=== PATIENT | male | born 1965 | race Caucasian/White ===

== ENCOUNTER 2017-10-11 14:46 | Inpatient (IN) | payer OTHER ==
--- NOTE | 2017-10-11 15:09 | PDOC ---
Rapid Medical Evaluation Time Seen by Provider: 10/11/17 15:07 Medical Evaluation: 10/11/17 15:07 I have performed a brief in-person evaluation of this patient. The patient presents with a chief complaint of: dizziness w/ n/v, also reports L arm pain. Denies any pmhx Pertinent physical exam findings:Tachycardic and hypertensive at triage w/ clear chest/lungs and no focal neuro deficits I have ordered the following:ekg/cxr/labs The patient will proceed to the ED for further evaluation. 0
[2017-10-11 15:59] LABS: BASO % 0.4 % (0-2.0); EOS % 0.2 % (0-4.5); HEMATOCRIT 46.5 % (35.4-49); HEMOGLOBIN 15.2 GM/dL (11.7-16.9); LYMPH % 9.2 % (8-40); MCH 27.7 pg (25.7-33.7); MCHC 32.6 g/dl (32.0-35.9); MEAN PLT VOLUME 8.4 fl (7.5-11.1); MONO % 6.6 % (3.8-10.2); NEUT % 83.6 % (42.8-82.8); PLATELET COUNT 359 K/MM3 (134-434); RBC 5.47 M/mm3 (4.00-5.60); RDW 13.8 % (11.9-15.9); WHITE BLOOD COUNT 10.3 K/mm3 (4.0-10.0)
[2017-10-11 16:04] LABS: URINE APPEARANCE CLEAR; URINE BILIRUBIN NEGATIVE (NEGATIVE); URINE BLOOD NEGATIVE (NEGATIVE); URINE COLOR STRAW; URINE GLUCOSE (UA) NEGATIVE (NEGATIVE); URINE KETONE NEGATIVE (NEGATIVE); URINE LEUK ESTERASE NEGATIVE (NEGATIVE); URINE NITRITE NEGATIVE (NEGATIVE); URINE PROTEIN NEGATIVE (NEGATIVE); URINE UROBILINOGEN NEGATIVE mg/dL (0.2-1.0)
[2017-10-11 16:22] LABS: ANION GAP 9 (8-16); BILIRUBIN,TOTAL 0.3 mg/dL (0.2-1.0); BLOOD UREA NITROGEN 17 mg/dL (7-18); CHLORIDE 106 mmol/L (98-107); CO2 26 mmol/L (21-32); CREATININE 1.3 mg/dL (0.7-1.3); GLUCOSE,RANDOM 107 mg/dL (74-106); POTASSIUM 4.1 mmol/L (3.5-5.1); SGOT/AST 52 U/L (15-37); SGPT/ALT 64 U/L (12-78); SODIUM 141 mmol/L (136-145); TOT PROT 7.8 g/dl (6.4-8.2)
[2017-10-11 16:36] LABS: ALK PHOS 107 U/L (45-117)
[2017-10-11] MEDS ORDERED: ASPIRIN COATED 81 MG TABLET.EC PO ONE (17:08)
[2017-10-11] MEDS ORDERED: ASPIRIN 325 MG TABLET ONE (17:45)
--- NOTE | 2017-10-11 18:03 | PDOC ---
Attending Attestation - Resident Resident Name: Garrett Clay - ED Attending Attestation I have performed the following: I have examined & evaluated the patient, The case was reviewed & discussed with the resident, I agree w/resident's findings & plan, Exceptions are as noted - HPI HPI: 10/11/17 20:44 The patient is a 52 year old male, with no significant past medical history who presents to the emergency department with lightheadedness, SOB, chest pain radiating to LUE since around 11:00 am today. The patient reports while at work having a sudden onset of SOB, chest pain, and numbness in his left arm. He reports going home, where he reports vomiting once. He notes after about an 1-2 hours his symptoms mostly resolved and upon ED arrival patients symptoms appear to have subsided. He denies any recent fevers, chills, headache or dizziness. He denies any recent nausea, vomit, diarrhea or constipation. He denies any recent chest pain or shortness of breath. He denies any recent dysuria, frequency, urgency or hematuria. No hx similar sxs, no recent travel. Allergies: NKA Past surgical history: None reported. - Physicial Exam PE: 10/11/17 20:45 GENERAL: Awake, alert, and fully oriented, in no acute distress HEAD: No signs of trauma EYES: PERRLA, EOMI, sclera anicteric, conjunctiva clear ENT: Auricles normal inspection, hearing grossly normal, nares patent, oropharynx clear without exudates. Moist mucosa NECK: Normal ROM, supple, no lymphadenopathy, JVD, or masses LUNGS: Breath sounds equal, clear to auscultation bilaterally. No wheezes, and no crackles HEART: tachycardic to 115 but regular, normal S1 and S2, no murmurs, rubs or gallops ABDOMEN: Soft, nontender, normoactive bowel sounds. No guarding, no rebound. No masses EXTREMITIES: Normal range of motion, no edema. No clubbing or cyanosis. No cords , erythema, or tenderness BACK: No midline spinal tenderness in cervical/thoracic/lumbar region NEUROLOGICAL: Normal speech, cranial nerves intact, negative pronator drift, 5/ 5 strength in all 4 extremities, normal sensation to light touch in all 4 extremities, normal cerebellar exam, normal gait, normal reflexes and tone SKIN: Warm, Dry, normal turgor, no rashes or lesions noted.
[2017-10-11 19:07] LABS: INR 1.1 (0.82-1.09); PROTHROMBIN TIME (PATIENT) 12.4 SEC (9.98-11.88)
--- NOTE | 2017-10-11 19:12 | PDOC ---
History of Present Illness - General Chief Complaint: Lightheaded Stated Complaint: Nausea/Vomiting/ABD PAIN Time Seen by Provider: 10/11/17 15:07 History Source: Patient Exam Limitations: Language Barrier ([employer] [id number]) - History of Present Illness Initial Comments: 10/11/17 19:10 The patient is a 52M with no PMH (does not follow with any PCP) who presents to the ER after having a near syncopal episode. The patient states that around 1100 this morning, he felt light headed, had an episode of chest pain which radiated to his L arm, diaphoretic, and felt like he was going to pass out. He was at work when this happened. He went home to relax for an hour. Around noon he had an episode of vomiting and presented to the ER. He then decided to come to the ER. He denies any symptoms currently but states he still feels diaphoretic. Past History - Past Medical History Allergies/Adverse Reactions: Allergies Allergy/AdvReac Type Severity Reaction Status Date / Time No Known Allergies Allergy Verified 10/11/17 15:12 Home Medications: Ambulatory Orders NK [No Known Home Medication] 10/11/17 COPD: No - Suicide/Smoking/Psychosocial Hx Smoking History: Never smoked Review of Systems - Review of Systems Able to Perform ROS?: Yes Comments:: 10/11/17 19:13 GENERAL/CONSTITUTIONAL: Positive for diaphoresis. No fever or chills. No weakness. HEAD, EYES, EARS, NOSE AND THROAT: No change in vision. No ear pain or discharge. No sore throat. CARDIOVASCULAR: Positive for chest pain and lightheadedness. No palpitations. RESPIRATORY: Positive for shortness of breath. No cough, wheezing, or hemoptysis. GASTROINTESTINAL: No nausea, vomiting, diarrhea, constipation, or abdominal pain. GENITOURINARY: No dysuria, frequency, hematuria, or change in urination. MUSCULOSKELETAL: No joint or muscle swelling or pain. No neck or back pain. SKIN: No rash or lesions. NEUROLOGIC: No headache, numbness, tingling, weakness, loss of consciousness, or change in strength/sensation. ENDOCRINE: No increased thirst. No abnormal weight change. HEMATOLOGIC/LYMPHATIC: No anemia, easy bleeding, or history of blood clots. ALLERGIC/IMMUNOLOGIC: No hives or skin allergy. Is the patient limited Lao proficient: No *Physical Exam - Vital Signs Last Vital Signs Temp Pulse Resp BP Pulse Ox 98.1 F 116 H 20 164/101 97 10/11/17 15:08 10/11/17 15:08 10/11/17 15:08 10/11/17 15:08 10/11/17 15:08 - Physical Exam Comments: 10/11/17 19:19 GENERAL: Well developed, well nourished. Awake and alert. Mildly diaphoretic. No acute distress. HEENT: Normocephalic, atraumatic. Hearing grossly normal. Moist mucous membranes. PERRLA, EOMI. No conjunctival pallor. Sclera are non-icteric. Oropharynx is clear. NECK: Supple. Full ROM. No JVD. CARDIOVASCULAR: Regular rate and rhythm. No murmurs, rubs, or gallops. PULMONARY: No evidence of respiratory distress. Lungs clear to auscultation bilaterally. No wheezing, rales or rhonchi. ABDOMINAL: Soft. Non-tender. Non-distended. No rebound or guarding. GENITOURINARY: No CVA tenderness bilaterally. MUSCULOSKELETAL: Normal range of motion at all joints. No bony deformities or tenderness. EXTREMITIES: No cyanosis. No clubbing. No edema. No calf tenderness. SKIN: Warm and dry. Normal capillary refill. No rashes. No jaundice. NEUROLOGICAL: Alert, awake, appropriate. Cranial nerves 2-12 intact. Normal speech. Gait is normal without ataxia. PSYCHIATRIC: Cooperative. Good eye contact. Appropriate mood and affect. Heart Score/ECG Review #1 ECG reviewed & interpreted by me at: 19:20 General ECG Interpretation: Sinus Rhythm, Normal Rate, Normal Intervals, No acute ischemic changes Compared to previous ECG there are: Previous ECG unavail 10/11/17 19:20 NSR Rate 93 QRS 84 QTc 455 ED Treatment Course - LABORATORY CBC & Chemistry Diagram: 10/14/17 09:28 10/14/17 09:28 - ADDITIONAL ORDERS Additional order review: Laboratory Results 10/11/17 10/11/17 10/11/17 18:30 15:47 15:38 PT with INR 12.40 H INR 1.10 Sodium 141 Potassium 4.1 Chloride 106 Carbon Dioxide 26 Anion Gap 9 BUN 17 Creatinine 1.3 Creat Clearance w eGFR 57.97 Random Glucose 107 H Calcium 9.0 Total Bilirubin 0.3 AST 52 H ALT 64 Alkaline Phosphatase 107 Creatine Kinase 256 Creatine Kinase Index 4.6 CK-MB (CK-2) 12.010 H Troponin I 2.51 H* Total Protein 7.8 Albumin 4.0 Urine Color Straw Urine Appearance Clear Urine pH 6.0 Ur Specific [place] 1.010 Urine Protein Negative Urine Glucose (UA) Negative Urine Ketones Negative Urine Blood Negative Urine Nitrite Negative Urine Bilirubin Negative Urine Urobilinogen Negative Ur Leukocyte Esterase Negative 10/11/17 15:47 RBC 5.47 MCV 85.0 MCHC 32.6 RDW 13.8 MPV 8.4 Neutrophils % 83.6 H Lymphocytes % 9.2 Monocytes % 6.6 Eosinophils % 0.2 Basophils % 0.4 - RADIOLOGY Radiology Studies Ordered: Category Date Time Status CHEST CTA [CT] Stat CT Scan 10/11/17 17:45 Taken - Medications Given in the ED: ED Medications Discontinued Medications Generic Name Dose Route Start Last Admin Trade Name Freq PRN Reason Stop Dose Admin Aspirin 325 mg 10/11/17 17:08 10/11/17 17:48 Ecotrin - PO 10/11/17 17:09 325 mg ONCE ONE Administration Medical Decision Making - Medical Decision Making 10/11/17 19:20 The patient is a 52M with no PMH who presents after having a near syncopal episode with CP. On the differential is ACS, PE, arrhythmia. Labs significant for trop of 2.5. Chest CTA taken. Pending read. 10/11/17 19:26 Pending CTA read, will discuss with manager strategy & account. If CTA negative, will scan head for neurologic cause of presentation then administer heparin for possible NSTEMI. 10/11/17 21:05 CTA negative. Will order head CT. Dr. Grey paged. 10/11/17 21:[address] and repeat EKG pending. Repeat trop drawn. Dr. Grey's associate Dr. Johnson aware of patient. Plan: if CT head is negative, begin heparin. Dispo: admit to tele to hospitalist. Pt signed out to gamaliel Rucker team. *DC/Admit/Observation/Transfer Diagnosis at time of Disposition: NSTEMI (non-ST elevated myocardial infarction) - Discharge Dispostion Condition at time of disposition: Guarded - Referrals - Patient Instructions - Post Discharge Activity
--- NOTE | 2017-10-11 21:58 | PDOC ---
*Physical Exam - Vital Signs Last Vital Signs Temp Pulse Resp BP Pulse Ox 98.1 F 116 H 20 164/101 97 10/11/17 15:08 10/11/17 15:08 10/11/17 15:08 10/11/17 15:08 10/11/17 15:08 - Physical Exam Comments: 10/11/17 21:56 General Appearance: Nourished. No Apparent Distress HEENT: No Pharyngeal Erythema, Tonsillar Exudate, Tonsillar Erythema Neck: No Cervical Lymphadenopathy Respiratory/Chest: Lungs Clear, Normal Breath Sounds. No Crackles, Rales, Rhonchi, Wheezing Cardiovascular: Regular Rhythm, Regular Rate. No Murmur, Gallops, Rubs Gastrointestinal/Abdominal: Normal Bowel Sounds, Soft. No Guarding, Rebound, Tenderness Musculoskeletal: No CVA Tenderness Extremity: Normal Capillary Refill Integumentary: Normal Color, Dry, Warm Neurologic: Fully Oriented, Alert, Normal Mood/Affect, Normal Response ED Treatment Course - LABORATORY CBC & Chemistry Diagram: 10/11/17 15:47 10/11/17 15:47 - ADDITIONAL ORDERS Additional order review: Laboratory Results 10/11/17 10/11/17 10/11/17 18:30 15:47 15:38 PT with INR 12.40 H INR 1.10 Sodium 141 Potassium 4.1 Chloride 106 Carbon Dioxide 26 Anion Gap 9 BUN 17 Creatinine 1.3 Creat Clearance w eGFR 57.97 Random Glucose 107 H Calcium 9.0 Total Bilirubin 0.3 AST 52 H ALT 64 Alkaline Phosphatase 107 Creatine Kinase 256 Creatine Kinase Index 4.6 CK-MB (CK-2) 12.010 H Troponin I 2.51 H* Total Protein 7.8 Albumin 4.0 Urine Color Straw Urine Appearance Clear Urine pH 6.0 Ur Specific [place] 1.010 Urine Protein Negative Urine Glucose (UA) Negative Urine Ketones Negative Urine Blood Negative Urine Nitrite Negative Urine Bilirubin Negative Urine Urobilinogen Negative Ur Leukocyte Esterase Negative 10/11/17 15:47 RBC 5.47 MCV 85.0 MCHC 32.6 RDW 13.8 MPV 8.4 Neutrophils % 83.6 H Lymphocytes % 9.2 Monocytes % 6.6 Eosinophils % 0.2 Basophils % 0.4 - Medications Given in the ED: ED Medications Discontinued Medications Generic Name Dose Route Start Last Admin Trade Name Freq PRN Reason Stop Dose Admin Aspirin 325 mg 10/11/17 17:08 10/11/17 17:48 Ecotrin - PO 10/11/17 17:09 325 mg ONCE ONE Administration Progress Note - Progress Note Progress Note: The patient is a 52 year old male with a history of HTN who does not follow with a regular physician who presented for evaluation following a near-syncopal episode with lightheadedness, chest pain, and diaphoresis. Troponin was elevated here in the ED without EKG changes. Cardiology is aware. Patient is pending a head ct and then is to be started on heparin if negative. Will be admitted to hospitalist team pending head ct read. Medical Decision Making - Medical Decision Making 10/11/17 23:43 Discussed the case with the hospitalist team who accepted the patient for admission. Head CT is negative as preliminarily read by ER physician pending official read. Heparin drip has been started. *DC/Admit/Observation/Transfer Diagnosis at time of Disposition: NSTEMI (non-ST elevated myocardial infarction) - Discharge Dispostion Condition at time of disposition: Guarded Admit: Yes - Referrals - Patient Instructions - Post Discharge Activity
[2017-10-11] MEDS ORDERED: HEPARIN NA (PORCINE) 5,000 UNITS/ML 1ML VIAL IVPUSH PRN ×2 (23:10)
--- NOTE | 2017-10-11 23:34 | HP ---
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 Patient noted retrosternal chest pressure of about 6/10 that occurred this am at around 11.00am lasting over 30mins that radiated to LUE and was associated with palpitations, diaphoresis, dizziness, nausea and vomiting. The pain was relieved slightly by the vomiting non bloody substance x1. Pt also noted SOB that is worse on exertion, with orthopnea and PND. No hx of similar symptoms in the past. No hx of cough, fever, headache, seizures or syncope or weakness of any part of the body. No slurred speech or facial droop. Pt is sedentary at baseline. 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 Smoking:Smoked from 14years 3cigs/day stopped 20 years ago Alcohol: Drank alcohol heavily in past Drugs: Denies Family History: Father 91- being investigated for cancer of lung (previous smoker) Mother- osteoarthritis 1 brother from pancreatic cancer other siblings stable Allergies No Known Allergies Allergy (Verified 10/11/17 15:12) HOME MEDICATIONS: Home Medications Medication Instructions Recorded NK [No Known Home Medication] 10/11/17 REVIEW OF SYSTEMS CONSTITUTIONAL: Absent: fever, chills, diaphoresis, generalized weakness, malaise, loss of appetite, weight change HEENT: Absent: rhinorrhea, nasal congestion, throat pain, throat swelling, difficulty swallowing, mouth swelling, ear pain, eye pain, visual changes CARDIOVASCULAR: chest pain+, palpitations+ Absent: syncope, , irregular heart rate, lightheadedness, peripheral edema RESPIRATORY: shortness of breath+, dyspnea with exertion+, orthopnea+ Absent: cough, wheezing, stridor, hemoptysis GASTROINTESTINAL: Absent: abdominal pain, abdominal distension, nausea, vomiting, diarrhea, constipation, melena, hematochezia GENITOURINARY: Absent: dysuria, frequency, urgency, hesitancy, hematuria, flank pain, genital pain MUSCULOSKELETAL: Absent: myalgia, arthralgia, joint swelling, back pain, neck pain SKIN: Absent: rash, itching, pallor HEMATOLOGIC/IMMUNOLOGIC: Absent: easy bleeding, easy bruising, lymphadenopathy, frequent infections ENDOCRINE: Absent: unexplained weight gain, unexplained weight loss, heat intolerance, cold intolerance NEUROLOGIC: Absent: headache, focal weakness or paresthesias, dizziness, unsteady gait, seizure, mental status changes, bladder or bowel incontinence PSYCHIATRIC: Absent: anxiety, depression, suicidal or homicidal ideation, hallucinations. PHYSICAL EXAMINATION Vital Signs - 24 hr 10/11/17 15:08 Temperature 98.1 F Pulse Rate 116 H Respiratory 20 Rate Blood Pressure 164/101 O2 Sat by Pulse 97 Oximetry (%) GENERAL: Awake, alert, and fully oriented, in no acute distress. HEAD: Normal with no signs of trauma. EYES: Pupils equal, round and reactive to light, extraocular movements intact, sclera anicteric, conjunctiva clear. EARS, NOSE, THROAT: oropharynx clear without exudates. Moist mucous membranes. NECK: Normal range of motion, supple without lymphadenopathy, JVD. LUNGS: Breath sounds equal, clear to auscultation bilaterally. No wheezes, and no crackles. HEART: Regular rate and rhythm, normal S1 and S2 ABDOMEN: Soft, nontender, not distended, normoactive bowel sounds, no guarding, no rebound, no masses. MUSCULOSKELETAL: Normal range of motion at all joints. No bony deformities or tenderness. No CVA tenderness. UPPER EXTREMITIES: 2+ pulses, warm, well-perfused. No cyanosis. No clubbing. No peripheral edema. LOWER EXTREMITIES: 2+ pulses, warm, well-perfused. No calf tenderness. No peripheral edema. NEUROLOGICAL: Cranial nerves II-XII intact. Normal speech. Gait not observed PSYCHIATRIC: Cooperative. Good eye contact. Appropriate mood and affect. CBC, BMP 10/11/17 15:47 02/21/18 15:47 Laboratory Results - last 24 hr 10/11/17 10/11/17 10/11/17 15:38 15:47 15:47 WBC 10.3 H RBC 5.47 Hgb 15.2 Hct 46.5 MCV 85.0 MCH 27.7 MCHC 32.6 RDW 13.8 Plt Count 359 MPV 8.4 Neutrophils % 83.6 H Lymphocytes % 9.2 Monocytes % 6.6 Eosinophils % 0.2 Basophils % 0.4 PT with INR INR Sodium 141 Potassium 4.1 Chloride 106 Carbon Dioxide 26 Anion Gap 9 BUN 17 Creatinine 1.3 Creat Clearance w eGFR 57.97 Random Glucose 107 H Calcium 9.0 Total Bilirubin 0.3 AST 52 H ALT 64 Alkaline Phosphatase 107 Creatine Kinase 256 Creatine Kinase Index 4.6 CK-MB (CK-2) 12.010 H Troponin I 2.51 H* Total Protein 7.8 Albumin 4.0 Urine Color Straw Urine Appearance Clear Urine pH 6.0 Ur Specific [place] 1.010 Urine Protein Negative Urine Glucose (UA) Negative Urine Ketones Negative Urine Blood Negative Urine Nitrite Negative Urine Bilirubin Negative Urine Urobilinogen Negative Ur Leukocyte Esterase Negative 10/11/17 10/11/17 18:30 21:20 WBC RBC Hgb Hct MCV MCH MCHC RDW Plt Count MPV Neutrophils % Lymphocytes % Monocytes % Eosinophils % Basophils % PT with INR 12.40 H INR 1.10 Sodium Potassium Chloride Carbon Dioxide Anion Gap BUN Creatinine Creat Clearance w eGFR Random Glucose Calcium Total Bilirubin AST ALT Alkaline Phosphatase Creatine Kinase 354 H Creatine Kinase Index 6.5 H* CK-MB (CK-2) 23.107 H Troponin I 8.62 H* D Total Protein Albumin Urine Color Urine Appearance Urine pH Ur Specific [place] Urine Protein Urine Glucose (UA) Urine Ketones Urine Blood Urine Nitrite Urine Bilirubin Urine Urobilinogen Ur Leukocyte Esterase ASSESSMENT/PLAN: 52 yo obese M diagnosed with HTN and HLD about 2 years ago, 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 and not compliant on medications, presenting with SOB, and CPx 1 day NSTEMI: Typical chest pain, tachycardia, Elevated Trops 2.51>>8.62 CKI-4.6>>6.5 CK- 256>>354 EKG- No acute ischemic changes Heart score-7 ASA 325mg stat- received in ED ASA [address] head to R/o bleed--ve for bleed Heparin gtt Repeat EKG- NSR, vent rate 71/ min , No acute ischemic changes QTc-467, Cardio consult- Dr Grey ECHO TSH Hgb A1c Lipid panel O2 as needed Metoprolol 25mg PO bid Coags Leucocytosis: Could be reactive Follow CBC HTN: BP-164/101 Metoprolol 25mg PO bid HLD: Atorvastatin 40mg daily FEN: No fluids recommended at this time Monitor electrolytes and replete as needed Low sodium/ low cholesterol diet PPx: Heparin drip Dispo: Admit to tele Visit type - Emergency Visit Emergency Visit: Yes ED Registration Date: 10/12/17 Care time: The patient presented to the Emergency Department on the above date and was hospitalized for further evaluation of their emergent condition. - New Patient This patient is new to me today: Yes Date on this admission: 10/12/17 - Critical Care Critical Care patient: No Hospitalist Screening - Colonoscopy Questionnaire Colonoscopy Questionnaire: Colonoscopy Questionnaire - Patient: 50 - 75 years old and never had a screening colonoscopy: Yes History of colon or rectal polyps, or CA: Unknown History of IBD, Crohn's disease or UC: No History of abdominal radiation therapy as a child: No - Relative: 1 with colon or rectal CA, or polyps at age 60 or younger: Unknown Colon or rectal CA diagnosed at age 45 or younger: Unknown Multiple relatives with colon or rectal CA: Unknown - Outcome: Screening Result: Positive Screen
[2017-10-12] MEDS: HEPARIN - 25,000 UNIT in SODIUM CHLORIDE 495 ML IV SCH (00:28)
[2017-10-12] MEDS ORDERED: HEPARIN INFUSION - 25,000 UNITS/500 ML INFUS.BAG IVPB ONE (02:16)
[2017-10-12] MEDS ORDERED: METOPROLOL TARTRATE 25 MG TABLET (FP) ONE ×2 (02:21→22:07)
--- NOTE | 2017-10-12 02:21 | PN ---
<Garrett Baca - Last Filed: 10/12/17 02:20> Teaching Attending Note Name of Resident: Candida Peters ATTENDING PHYSICIAN STATEMENT I saw and evaluated the patient. I reviewed the resident's note and discussed the case with the resident. I agree with the resident's findings and plan as documented. SUBJECTIVE: OBJECTIVE: Vital Signs Period Temp Pulse Resp BP Sys/Zhang Pulse Ox Last 24 Hr 98.1 F 116 20 164/101 97 Laboratory Tests 10/11/17 10/11/17 10/11/17 15:38 15:47 15:47 WBC 10.3 H RBC 5.47 Hgb 15.2 Hct 46.5 MCV 85.0 MCH 27.7 MCHC 32.6 RDW 13.8 Plt Count 359 MPV 8.4 Neutrophils % 83.6 H Lymphocytes % 9.2 Monocytes % 6.6 Eosinophils % 0.2 Basophils % 0.4 PT with INR INR Sodium 141 Potassium 4.1 Chloride 106 Carbon Dioxide 26 Anion Gap 9 BUN 17 Creatinine 1.3 Creat Clearance w eGFR 57.97 Random Glucose 107 H Calcium 9.0 Total Bilirubin 0.3 AST 52 H ALT 64 Alkaline Phosphatase 107 Creatine Kinase 256 Creatine Kinase Index 4.6 CK-MB (CK-2) 12.010 H Troponin I 2.51 H* Total Protein 7.8 Albumin 4.0 Urine Color Straw Urine Appearance Clear Urine pH 6.0 Ur Specific [place] 1.010 Urine Protein Negative Urine Glucose (UA) Negative Urine Ketones Negative Urine Blood Negative Urine Nitrite Negative Urine Bilirubin Negative Urine Urobilinogen Negative Ur Leukocyte Esterase Negative 10/11/17 10/11/17 18:30 21:20 WBC RBC Hgb Hct MCV MCH MCHC RDW Plt Count MPV Neutrophils % Lymphocytes % Monocytes % Eosinophils % Basophils % PT with INR 12.40 H INR 1.10 Sodium Potassium Chloride Carbon Dioxide Anion Gap BUN Creatinine Creat Clearance w eGFR Random Glucose Calcium Total Bilirubin AST ALT Alkaline Phosphatase Creatine Kinase 354 H Creatine Kinase Index 6.5 H* CK-MB (CK-2) 23.107 H Troponin I 8.62 H* D Total Protein Albumin Urine Color Urine Appearance Urine pH Ur Specific [place] Urine Protein Urine Glucose (UA) Urine Ketones Urine Blood Urine Nitrite Urine Bilirubin Urine Urobilinogen Ur Leukocyte Esterase Home Medications Medication Instructions Recorded NK [No Known Home Medication] 10/11/17 ASSESSMENT AND PLAN: <Agaba,Comfort I - Last Filed: 10/12/17 06:25> Teaching Attending Note ATTENDING PHYSICIAN STATEMENT I saw and evaluated the patient. I reviewed the resident's note and discussed the case with the resident. I agree with the resident's findings and plan as documented. SUBJECTIVE: OBJECTIVE: ASSESSMENT AND PLAN:
[2017-10-12] MEDS: METOPROLOL TARTRATE 25 MG TABLET (FP) PO SCH ×3 (02:28→22:14)
[2017-10-12 02:31] LABS: URINE APPEARANCE CLEAR; URINE BILIRUBIN NEGATIVE (NEGATIVE); URINE BLOOD NEGATIVE (NEGATIVE); URINE COLOR YELLOW; URINE GLUCOSE (UA) NEGATIVE (NEGATIVE); URINE KETONE NEGATIVE (NEGATIVE); URINE LEUK ESTERASE NEGATIVE (NEGATIVE); URINE NITRITE NEGATIVE (NEGATIVE); URINE UROBILINOGEN NEGATIVE mg/dL (0.2-1.0)
[2017-10-12 02:33] LABS: URINE PROTEIN 1+ (NEGATIVE)
[2017-10-12 02:35] LABS: URINE MUCUS RARE
[2017-10-12 07:05] LABS: BASO % 1.3 % (0-2.0); HEMATOCRIT 43.4 % (35.4-49); HEMOGLOBIN 14.6 GM/dL (11.7-16.9); LYMPH % 30.8 % (8-40); MCH 28.6 pg (25.7-33.7); MCHC 33.6 g/dl (32.0-35.9); MEAN CELL VOLUME 84.9 fl (80-96); MEAN PLT VOLUME 8.6 fl (7.5-11.1); NEUT % 56.9 % (42.8-82.8); PLATELET COUNT 325 K/MM3 (134-434); RBC 5.11 M/mm3 (4.00-5.60)
[2017-10-12 07:33] LABS: ANION GAP 4 (8-16); BLOOD UREA NITROGEN 16 mg/dL (7-18); CALCIUM 8.3 mg/dL (8.5-10.1); CHLORIDE 106 mmol/L (98-107); CHOLESTEROL 214 mg/dL (50-200); CO2 30 mmol/L (21-32); GLUCOSE,RANDOM 99 mg/dL (74-106); LDL CHOLESTEROL (ONLY SJRH) 141 mg/dL (5-100); MAGNESIUM 2.2 mg/dL (1.8-2.4); PHOSPHOROUS 4.5 mg/dL (2.5-4.9); POTASSIUM 3.9 mmol/L (3.5-5.1); SODIUM 140 mmol/L (136-145); TRIGLYCERIDES 89 mg/dL (35-160)
[2017-10-12 07:48] LABS: HDL CHOLESTEROL 56 mg/dL (40-60); N-TERMINAL BNP 461.83 pg/ml (5-125)
[2017-10-12 08:03] LABS: INR 1.13 (0.82-1.09); PROTHROMBIN TIME (PATIENT) 12.8 SEC (9.98-11.88)
[2017-10-12 08:04] LABS: ACTIVATED PTT 35.2 SECONDS (26.9-34.4)
[2017-10-12] MEDS: ASPIRIN COATED 81 MG TABLET.EC PO SCH (09:26)
--- NOTE | 2017-10-12 12:17 | EKG ---
Test Reason : Blood Pressure : / mmHG Vent. Rate : 071 BPM Atrial Rate : 071 BPM P-R Int : 174 ms QRS Dur : 098 ms QT Int : 430 ms P-R-T Axes : 040 005 061 degrees QTc Int : 467 ms NORMAL SINUS RHYTHM NORMAL ECG WHEN COMPARED WITH ECG OF 11-OCT-2017 16:59, NO SIGNIFICANT CHANGE WAS FOUND Confirmed by MICHAEL BRANDT MD ([id number]) on 10/12/2017 12:17:04 PM Referred By: Confirmed By:MICHAEL BRANDT MD
--- NOTE | 2017-10-12 15:27 | CON.CARD ---
Consult Consult Specialty:: Cardiology Referred by:: Keven Reason for Consultation:: elevated troponin, cp - History of Present Illness Chief Complaint: chest pain History of Present Illness: He is a 52 year old man history of HTN, chol noncompliant with follow up on no medications, nonsmoker, who came to the ER 10/11/17 with near syncope and chest pain lasting 30 mins with dizziness, diaphoresis and left arm tingling. Noted with no ECG changes, elevated troponin. CT 10/11/17 head negative CTA 10/11/17 no PE Echo 10/12/17 EF 30%, severe global hypokinesis, normal valves. - History Source History Provided By: Patient, Medical Record - Past Medical History Cardio/Vascular: Yes: HTN, Hyperlipdemia - Smoking History Smoking history: Never smoked Home Medications - Allergies Allergies/Adverse Reactions: Allergies Allergy/AdvReac Type Severity Reaction Status Date / Time No Known Allergies Allergy Verified 10/11/17 15:12 - Home Medications Home Medications: Ambulatory Orders NK [No Known Home Medication] 10/11/17 Review of Systems - Review of Systems Constitutional: reports: No Symptoms Eyes: reports: No Symptoms HENT: reports: No Symptoms Neck: reports: No Symptoms Respiratory: reports: No Symptoms Gastrointestinal: reports: No Symptoms Genitourinary: reports: No Symptoms Vital Signs: Vital Signs Temperature 98.6 F 10/12/17 06:48 Pulse Rate 89 10/12/17 06:58 Respiratory Rate 18 10/12/17 06:58 Blood Pressure 132/98 10/12/17 06:58 O2 Sat by Pulse Oximetry (%) 99 10/12/17 06:58 Constitutional: Yes: No Distress, Calm Eyes: Yes: Conjunctiva Clear, EOM Intact HENT: Yes: Atraumatic, Normocephalic Neck: Yes: Supple, Trachea Midline Respiratory: Yes: CTA Bilaterally Gastrointestinal: Yes: Normal Bowel Sounds, Soft Cardiovascular: Yes: Regular Rate and Rhythm JVD: No Carotid Bruit: No PMI: Non-Displaced Heart Sounds: Yes: S1, S2 Murmur: Yes: Systolic Murmur Musculoskeletal: Yes: WNL Extremities: Yes: WNL Edema: No Peripheral Pulses WNL: Yes - Other Data Labs, Other Data: CBC, BMP 10/12/17 06:45 10/12/17 06:45 INR, PTT INR 1.13 (0.82-1.09) 10/12/17 06:45 Troponin, BNP 10/11/17 10/11/17 10/12/17 15:47 21:20 06:45 Troponin I 2.51 H* 8.62 H* D 5.49 H* D B-Natriuretic Peptide 461.83 H 10/12/17 13:45 Troponin I 3.36 H* D B-Natriuretic Peptide Troponin, BNP 10/11/17 10/11/17 10/12/17 15:47 21:20 06:45 Troponin I 2.51 H* 8.62 H* D 5.49 H* D B-Natriuretic Peptide 461.83 H 10/12/17 13:45 Troponin I 3.36 H* D B-Natriuretic Peptide Imaging - Results Chest X-ray: Report Reviewed (bahman) Cat Scan: Report Reviewed (cth neg cta no pe) EKG: Report Reviewed (normal ECG) Problem List - Problems (1) NSTEMI (non-ST elevated myocardial infarction) Assessment/Plan: He has elevated troponin most c/w subacute presentation of [place]. ASA, IV heparin started Echo with severely reduced LVEF. Start metoprolol and atorvastatin Will arrange for transfer to [facility] 10/13/17 for cardiac catheterization. Code(s): I21.4 - NON-ST ELEVATION (NSTEMI) MYOCARDIAL INFARCTION
--- NOTE | 2017-10-12 16:07 | EKG ---
Test Reason : Blood Pressure : / mmHG Vent. Rate : 093 BPM Atrial Rate : 093 BPM P-R Int : 168 ms QRS Dur : 084 ms QT Int : 366 ms P-R-T Axes : 032 -07 037 degrees QTc Int : 455 ms NORMAL SINUS RHYTHM NORMAL ECG NO PREVIOUS ECGS AVAILABLE Confirmed by MICHAEL BRANDT MD ([id number]) on 10/12/2017 4:07:35 PM Referred By: Confirmed By:MICHAEL BRANDT MD
[2017-10-12] MEDS ORDERED: CLOPIDOGREL BISULFATE 75 MG TABLET (FP) ONE (17:11)
[2017-10-12] MEDS: CLOPIDOGREL BISULFATE 75 MG TABLET (FP) PO SCH (17:16)
--- NOTE | 2017-10-12 18:17 | PN ---
Progress Note (short form) - Note Progress Note: Subjective: The patient was seen and examined at the bedside, he has no complaints at this time. He denies any chest pain ECHO with moderate to severely reduced LV function. Moderate to severe global hypkinesis to the left ventricle Patient was to be transferred to [facility] tomorrow for cardiac cath, however will need to be evaluated for medical insurance coverage Current Medications Generic Name Dose Route Start Last Admin Trade Name Freq PRN Reason Stop Dose Admin Aspirin 81 mg 10/12/17 10:00 10/12/17 09:26 Ecotrin - PO 81 mg DAILY BALDOMERO Administration Atorvastatin Calcium 80 mg 10/12/17 22:00 Lipitor - PO HS BALDOMERO Clopidogrel Bisulfate 75 mg 10/12/17 16:45 10/12/17 17:16 Plavix - PO 75 mg DAILY BALDOMERO Administration Heparin Sodium (Porcine) 1,000 unit 10/11/17 23:10 Heparin - IVPUSH PRN PRN Heparin Heparin Sodium (Porcine) 5,000 unit 10/11/17 23:10 Heparin - IVPUSH PRN PRN Heparin Heparin Sodium (Porcine) 25, 500 mls @ 20 mls/hr 10/11/17 23:15 10/12/17 09: 22 000 unit/ Sodium Chloride IV 1,150 unit/hr TITR BALDOMERO 23 mls/hr Protocol Titration 1,000 UNIT/HR Lisinopril 10 mg 10/13/17 10:00 Prinivil PO DAILY BALDOMERO Metoprolol Tartrate 25 mg 10/12/17 01:00 10/12/17 09:26 Lopressor - PO 25 mg BID BALDOMERO Administration Objective: Vital Signs Period Temp Pulse Resp BP Sys/Zhang Pulse Ox Last 24 Hr 98.6 F-98.7 F 66-89 16-18 132-154/98-103 95-99 Physical Exam: General: NAD, A&Ox3 Lungs: CTA bilaterally Heart: RRR, S1S2 Abd: Soft, non-tender, non-distended. Normoactive bowel sounds Ext: Warm, well-perfused. 2+ DP/PT bilaterally Neuro: CN 2-12 intact CBCD WBC 8.0 K/mm3 (4.0-10.0) 10/12/17 06:45 RBC 5.11 M/mm3 (4.00-5.60) 10/12/17 06:45 Hgb 14.6 GM/dL (11.7-16.9) 10/12/17 06:45 Hct 43.4 % (35.4-49) 10/12/17 06:45 MCV 84.9 fl (80-96) 10/12/17 06:45 MCHC 33.6 g/dl (32.0-35.9) 10/12/17 06:45 RDW 14.0 % (11.9-15.9) 10/12/17 06:45 Plt Count 325 K/MM3 (134-434) 10/12/17 06:45 MPV 8.6 fl (7.5-11.1) 10/12/17 06:45 CMP Sodium 140 mmol/L (136-145) 10/12/17 06:45 Potassium 3.9 mmol/L (3.5-5.1) 10/12/17 06:45 Chloride 106 mmol/L (98-107) 10/12/17 06:45 Carbon Dioxide 30 mmol/L (21-32) 10/12/17 06:45 Anion Gap 4 (8-16) L 10/12/17 06:45 BUN 16 mg/dL (7-18) 10/12/17 06:45 Creatinine 1.0 mg/dL (0.7-1.3) D 10/12/17 06:45 Creat Clearance w eGFR 57.97 (>60) 10/11/17 15:47 Random Glucose 99 mg/dL (74-106) 10/12/17 06:45 Calcium 8.3 mg/dL (8.5-10.1) L 10/12/17 06:45 Total Bilirubin 0.3 mg/dL (0.2-1.0) 10/11/17 15:47 AST 52 U/L (15-37) H 10/11/17 15:47 ALT 64 U/L (12-78) 10/11/17 15:47 Alkaline Phosphatase 107 U/L (45-117) 10/11/17 15:47 Total Protein 7.8 g/dl (6.4-8.2) 10/11/17 15:47 Albumin 4.0 g/dl (3.4-5.0) 10/11/17 15:47 CARDIAC ENZYMES Creatine Kinase 280 IU/L (39-308) 10/12/17 13:45 Troponin I 3.36 ng/ml (0.00-0.05) H* D 10/12/17 13:45 Assessment: This is a 52 year old male with PMHx of HTN, hyperlipidemia who presented to the ED with shortness of breath and chest pain x1 week. Plan: 1) NSTEMI - Trops peaked at 8.62 - On Heparin gtt, transition to Lovenox per cardiology - Continue ASA 81mg po daily - Plavix 75mg po daily - Lisinopril 10mg po daily - Lopressor 25mg po bid - Lipitor 80mg po hs - Lipid panel reviewed - F/u TSH - Appreciate cardiology consult: patient does not have insurance, will need to work on emergency medicaid with SW 2) HTN - As above 3) Hyperlipidemia - As above 4) F/E/N: - Sodium controlled diet - Monitor electrolytes 5) Prophylaxis: - On Heparin gtt - OOB ambulating 6) Dispo: - Requires continued inpatient care CODE STATUS: FULL CODE Visit type - Emergency Visit Emergency Visit: Yes ED Registration Date: 10/12/17 Care time: The patient presented to the Emergency Department on the above date and was hospitalized for further evaluation of their emergent condition. - New Patient This patient is new to me today: Yes Date on this admission: 10/12/17 - Critical Care Critical Care patient: No
[2017-10-12] MEDS ORDERED: LISINOPRIL 20 MG TABLET (FP) PO ONE (18:30)
[2017-10-12] MEDS ORDERED: ATORVASTATIN CA 40 MG TABLET (FP) PO SCH (22:00)
[2017-10-12] MEDS ORDERED: ATORVASTATIN CA 80 MG TABLET (FP) ONE (22:07)
[2017-10-12] MEDS: ATORVASTATIN CA 80 MG TABLET (FP) PO SCH (22:14)
[2017-10-13 00:38] VITALS: BMI 33.3
[2017-10-13] MEDS: HEPARIN - 25,000 UNIT in SODIUM CHLORIDE 495 ML IV SCH (03:08)
[2017-10-13] MEDS: CLOPIDOGREL BISULFATE 75 MG TABLET (FP) PO SCH (09:24)
[2017-10-13] MEDS: ASPIRIN COATED 81 MG TABLET.EC PO SCH (09:24)
[2017-10-13] MEDS: LISINOPRIL 10 MG TABLET (FP) PO SCH (09:24)
[2017-10-13] MEDS: METOPROLOL TARTRATE 25 MG TABLET (FP) PO SCH ×2 (09:24→22:20)
--- NOTE | 2017-10-13 14:36 | PN ---
Progress Note, Physician Chief Complaint: no chest pain or sob. tele neg History of Present Illness: He is a 52 year old man history of HTN, chol noncompliant with follow up on no medications, nonsmoker, who came to the ER 10/11/17 with near syncope and chest pain lasting 30 mins with dizziness, diaphoresis and left arm tingling. Noted with no ECG changes, elevated troponin. CT 10/11/17 head negative CTA 10/11/17 no PE Echo 10/12/17 EF 30%, severe global hypokinesis, normal valves. - Current Medication List Current Medications: Active Medications Aspirin (Ecotrin -) 81 mg PO DAILY [facility] Last Admin: 10/13/17 09:24 Dose: 81 mg Atorvastatin Calcium (Lipitor -) 80 mg PO HS [facility] Last Admin: 10/12/17 22:14 Dose: 80 mg Clopidogrel Bisulfate (Plavix -) 75 mg PO DAILY [facility] Last Admin: 10/13/17 09:24 Dose: 75 mg Heparin Sodium (Porcine) (Heparin -) 1,000 unit IVPUSH PRN PRN PRN Reason: Heparin Heparin Sodium (Porcine) (Heparin -) 5,000 unit IVPUSH PRN PRN PRN Reason: Heparin Heparin Sodium (Porcine) 25, (000 unit/ Sodium Chloride) 500 mls @ 20 mls/hr IV TITR [facility]; 1,000 UNIT/HR PRN Reason: Protocol Last Admin: 10/13/17 03:08 Dose: 1,150 unit/hr, 23 mls/hr Lisinopril (Prinivil) 10 mg PO DAILY [facility] Last Admin: 10/13/17 09:24 Dose: 10 mg Metoprolol Tartrate (Lopressor -) 25 mg PO BID [facility] Last Admin: 10/13/17 09:24 Dose: 25 mg - Objective Vital Signs: Vital Signs Temperature 98.1 F 10/13/17 10:36 Pulse Rate 75 10/13/17 10:36 Respiratory Rate 18 10/13/17 10:36 Blood Pressure 129/103 10/13/17 10:36 O2 Sat by Pulse Oximetry (%) 97 10/13/17 09:00 Constitutional: Yes: No Distress, Calm Eyes: Yes: Conjunctiva Clear, EOM Intact HENT: Yes: Atraumatic, Normocephalic Neck: Yes: Supple, Trachea Midline Cardiovascular: Yes: Regular Rate and Rhythm Respiratory: Yes: CTA Bilaterally Gastrointestinal: Yes: Normal Bowel Sounds, Soft Musculoskeletal: Yes: WNL Extremities: Yes: WNL Edema: No Peripheral Pulses WNL: Yes Labs: CBC, BMP 10/12/17 06:45 10/12/17 06:45 INR, PTT INR 1.13 (0.82-1.09) 10/12/17 06:45 Problem List - Problems (1) NSTEMI (non-ST elevated myocardial infarction) Assessment/Plan: He has elevated troponin most c/w subacute presentation of [place]. ASA, IV heparin started, now changed to lovenox. Echo with severely reduced LVEF. continue metoprolol and atorvastatin Will arrange for transfer to [facility] when insurance issues are settled for cardiac catheterization. Code(s): I21.4 - NON-ST ELEVATION (NSTEMI) MYOCARDIAL INFARCTION
[2017-10-13] MEDS ORDERED: ENOXAPARIN NA (PORCINE) 80 MG/0.8 ML DISP.SYRIN SQ SCH (14:45)
[2017-10-13] MEDS: ENOXAPARIN NA (PORCINE) 100 MG/1 ML DISP.SYRIN SQ SCH ×2 (14:50→22:19)
--- NOTE | 2017-10-13 17:25 | PN ---
Physical Exam: SUBJECTIVE: Patient seen and examined at the bedside. Denies chest pain at the moment, denies shortness of breath. OBJECTIVE: Awaiting transfer to [facility] for cardiac cath once insurance is approved Started on Lovenox as per cardiology Vital Signs Period Temp Pulse Resp BP Sys/Zhang Pulse Ox Last 24 Hr 97.6 F-98.1 F 65-77 16-20 129-174/95-113 97-98 GENERAL: The patient is awake, alert, and fully oriented, in no acute distress. HEAD: Normal with no signs of trauma. EYES: PERRL, extraocular movements intact, sclera anicteric, conjunctiva clear. No ptosis. ENT: Ears normal, nares patent, oropharynx clear without exudates, moist mucous membranes. NECK: Trachea midline, full range of motion, supple. LUNGS: Breath sounds equal, clear to auscultation bilaterally, no wheezes, no crackles, no accessory muscle use. HEART: Regular rate and rhythm, ABDOMEN: Soft, nontender, nondistended, normoactive bowel sounds, no guarding, no rebound, no hepatosplenomegaly, no masses. EXTREMITIES: no edema. NEUROLOGICAL:Normal speech, gait not observed. PSYCH: Normal mood, normal affect. SKIN: Warm, dry, normal turgor, no rashes or lesions noted Laboratory Results - last 24 hr 10/12/17 10/13/17 10/13/17 16:56 06:30 06:30 PTT (Actin FS) 67.0 H D 64.9 H TSH 2.74 Active Medications Generic Name Dose Route Start Last Admin Trade Name Freq PRN Reason Stop Dose Admin Aspirin 81 mg 10/12/17 10:00 10/13/17 09:24 Ecotrin - PO 81 mg DAILY [facility] Administration Atorvastatin Calcium 80 mg 10/12/17 22:00 10/12/17 22:14 Lipitor - PO 80 mg HS BALDOMERO Administration Clopidogrel Bisulfate 75 mg 10/12/17 16:45 10/13/17 09:24 Plavix - PO 75 mg DAILY [facility] Administration Enoxaparin Sodium 100 mg 10/13/17 14:45 10/13/17 14:50 Lovenox - SQ 100 mg BID BALDOMERO Administration Lisinopril 10 mg 10/13/17 10:00 10/13/17 09:24 Prinivil PO 10 mg DAILY BALDOMERO Administration Metoprolol Tartrate 25 mg 10/12/17 01:00 10/13/17 09:24 Lopressor - PO 25 mg BID BALDOMERO Administration ASSESSMENT/PLAN: Patient is a 52 year old male with a past medical history of hypertension and hyperlipidemia. He presented to the ED with shortness of breath and chest pain for one week. On exam, patient reports that he is no longer having chest pain and is comfortable at rest. No shortnesss of breath reported. Awaiting to be transferred to [facility]. Discussed with HEATHER who is coordinating patient's transfer pending insurance clearance. Imaging: Echo: moderate to severely reduced LV function. Mod to severe global hypk left ventricle Cardiology: NSTEMI with elevated troponins S/p heparin drip, now on Lovenox 100mg BID as per cardiology On ASA 81mg daily, Plavix 75mg daily, Lisinopril 10mg daily, Lipitor 80 mg daily , Metoprolol tartrate 25mg BID Awaiting cardiac cath transfer, possibly [facility] Hypertension, controlled Monitor Hyperlipidemia On Lipitor 80mg daily F.E.N: oral intake sufficient, monitor electrolytes, low salt diet Prophylaxis: Lovenox 100mg bid, Protonix GI protection Disposition: full code, awaiting transfer Visit type - Emergency Visit Emergency Visit: Yes ED Registration Date: 10/12/17 Care time: The patient presented to the Emergency Department on the above date and was hospitalized for further evaluation of their emergent condition. - New Patient This patient is new to me today: Yes Date on this admission: 10/13/17 - Critical Care Critical Care patient: No - Discharge Referral Referred to [facility] No
[2017-10-13] MEDS: ATORVASTATIN CA 80 MG TABLET (FP) PO SCH (22:20)
[2017-10-14] MEDS: METOPROLOL TARTRATE 25 MG TABLET (FP) PO SCH ×2 (09:14→21:03)
[2017-10-14] MEDS: ENOXAPARIN NA (PORCINE) 100 MG/1 ML DISP.SYRIN SQ SCH ×2 (09:15→21:05)
[2017-10-14] MEDS: ASPIRIN COATED 81 MG TABLET.EC PO SCH (09:15)
[2017-10-14] MEDS: LISINOPRIL 10 MG TABLET (FP) PO SCH (09:15)
[2017-10-14] MEDS: CLOPIDOGREL BISULFATE 75 MG TABLET (FP) PO SCH (09:15)
[2017-10-14 09:55] LABS: BASO % 0.9 % (0-2.0); EOS % 1.8 % (0-4.5); HEMATOCRIT 44.6 % (35.4-49); HEMOGLOBIN 14.8 GM/dL (11.7-16.9); LYMPH % 29.7 % (8-40); MCH 28.2 pg (25.7-33.7); MCHC 33.2 g/dl (32.0-35.9); MEAN CELL VOLUME 84.9 fl (80-96); MEAN PLT VOLUME 8.3 fl (7.5-11.1); MONO % 8.2 % (3.8-10.2); NEUT % 59.4 % (42.8-82.8); PLATELET COUNT 335 K/MM3 (134-434); RBC 5.26 M/mm3 (4.00-5.60); WHITE BLOOD COUNT 6.5 K/mm3 (4.0-10.0)
[2017-10-14 10:20] LABS: CHLORIDE 106 mmol/L (98-107); POTASSIUM 3.9 mmol/L (3.5-5.1); SODIUM 138 mmol/L (136-145)
[2017-10-14 10:46] LABS: ALBUMIN 3.4 g/dl (3.4-5.0); ALK PHOS 97 U/L (45-117); ANION GAP 8 (8-16); BILIRUBIN,TOTAL 0.6 mg/dL (0.2-1.0); BLOOD UREA NITROGEN 15 mg/dL (7-18); CALCIUM 8.7 mg/dL (8.5-10.1); CO2 24 mmol/L (21-32); CREATININE 1.1 mg/dL (0.7-1.3); GLUCOSE,RANDOM 135 mg/dL (74-106); MAGNESIUM 2.1 mg/dL (1.8-2.4); SGOT/AST 33 U/L (15-37); SGPT/ALT 50 U/L (12-78); TOT PROT 6.8 g/dl (6.4-8.2)
--- NOTE | 2017-10-14 14:34 | PN ---
Progress Note, Physician Chief Complaint: The patient appears comfortable at the time of exam. He reports no recurrent chest pain and denies SOB, palpitation or dizziness. Tele shows sinus rhythm with occasional mild sinus bradycardia. History of Present Illness: 52 year old man with a PMHx of HTN, hyperchol and noncompliant with follow up on no medications, who was admitted 10/11/17 with near syncope and chest pain lasting 30 minutes with dizziness, diaphoresis and left arm tingling. He had no acute ECG changes. But cardiac markers were elevated, consistent with NSTEMI. He is stable on current regimen without recurrent angina or CHF. Awaiting for cardiac cath once insurance is approved. CT 10/11/17 head negative CTA 10/11/17 no PE Echo 10/12/17 Normal LV size with severe global hypokinesis, LVEF = 31%. Normal valves. - Current Medication List Current Medications: Active Medications Aspirin (Ecotrin -) 81 mg PO DAILY [facility] Last Admin: 10/14/17 09:15 Dose: 81 mg Atorvastatin Calcium (Lipitor -) 80 mg PO HS [facility] Last Admin: 10/13/17 22:20 Dose: 80 mg Clopidogrel Bisulfate (Plavix -) 75 mg PO DAILY [facility] Last Admin: 10/14/17 09:15 Dose: 75 mg Enoxaparin Sodium (Lovenox -) 100 mg SQ BID [facility] Last Admin: 10/14/17 09:15 Dose: 100 mg Lisinopril (Prinivil) 10 mg PO DAILY [facility] Last Admin: 10/14/17 09:15 Dose: 10 mg Metoprolol Tartrate (Lopressor -) 25 mg PO BID [facility] Last Admin: 10/14/17 09:14 Dose: 25 mg - Objective Vital Signs: Vital Signs Temperature 98.7 F 10/14/17 14:15 Pulse Rate 73 10/14/17 14:15 Respiratory Rate 18 10/14/17 14:15 Blood Pressure 149/79 10/14/17 14:15 O2 Sat by Pulse Oximetry (%) 97 10/14/17 09:00 Physical Exam: General: Well developed. Well nourished. No acute distress. AAO X3. Head: Normocephalic. Atraumatic, Eyes: PERRLA, EOMI. Sclerae anicteric. Conjunctivae clear. ENT: Oropharynx, nares clear, mucosa moist without pallor or cyanosis Neck: Supple. No JVD. No bruits. No thyromegaly or lymphadenopathy, Heart: Normal S1, S2: Regular rate and rhythm. No murmur. No gallop or rub. Lungs: Symmetrical air entry. Clear to auscultation. No crackle, wheezing or rhonchi. Abdomen: Soft. Bowel sound positive. Non tender. No masses. Extremities: No edema, clubbing or cyanosis. Peripheral pulses 2+, equal bilaterally. Skin: Normal turgor. Warm and dry. No lesion. Neuro: Intact, no focal findings. Labs: CBC, BMP 10/14/17 09:28 10/14/17 09:28 INR, PTT INR 1.13 (0.82-1.09) 10/12/17 06:45 Assessment/Plan 52 year old man with a PMHx of HTN, hyperchol and noncompliant with follow up on no medications, who was admitted 10/11/17 with near syncope and chest pain lasting 30 minutes with dizziness, diaphoresis and left arm tingling. He had no acute ECG changes. But cardiac markers were elevated, consistent with NSTEMI. He is stable on current regimen without recurrent angina or CHF. Awaiting for cardiac cath once insurance is approved. Echo 10/12/17 Normal LV size with severe global hypokinesis, LVEF = 31%. Normal valves. 1) NSTEMI: Stable without recurrent angina on current medications. Continue Lovenox for one more daily. Continue Aspirin, Plavix, Atorvastatin and Metoprolol. Will transfer the patient to [facility] for cardiac cath once his insurance is approved. 2) Systolic CHF with severe LV systolic dysfunction, likely chronic. He is stable without dyspnea or physical signs of fluid overload. The etiology of LV systolic dysfunction could be ischemic. Continue Metoprolol 25 mg BID. Increase Lisinopril to 20 mg daily. Add spironolactone 25 mg daily. Monitor potassium and renal function.
[2017-10-14] MEDS ORDERED: LISINOPRIL 10 MG TABLET (FP) PO SCH (14:54)
--- NOTE | 2017-10-14 16:55 | PN ---
Physical Exam: SUBJECTIVE: Patient seen and examined. comfortable, no complaints OBJECTIVE: Awaiting transfer to [facility] for cardiac cath once insurance is approved Started on Lovenox as per cardiology Vital Signs Period Temp Pulse Resp BP Sys/Zhang Pulse Ox Last 24 Hr 97.0 F-98.8 F 57-79 16-18 135-172/68-103 97-97 GENERAL: The patient is awake, alert, and fully oriented, in no acute distress. HEAD: Normal with no signs of trauma. EYES: PERRL, extraocular movements intact, sclera anicteric, conjunctiva clear. No ptosis. ENT: Ears normal, nares patent, oropharynx clear without exudates, moist mucous membranes. NECK: Trachea midline, full range of motion, supple. LUNGS: Breath sounds equal, clear to auscultation bilaterally, no wheezes, no crackles, no accessory muscle use. HEART: Regular rate and rhythm, ABDOMEN: Soft, nontender, nondistended, normoactive bowel sounds, no guarding, no rebound, no hepatosplenomegaly, no masses. EXTREMITIES: no edema. NEUROLOGICAL:Normal speech, gait not observed. PSYCH: Normal mood, normal affect. SKIN: Warm, dry, normal turgor, no rashes or lesions noted Laboratory Results - last 24 hr 10/14/17 10/14/17 09:28 09:28 WBC 6.5 RBC 5.26 Hgb 14.8 Hct 44.6 MCV 84.9 MCH 28.2 MCHC 33.2 RDW 14.0 Plt Count 335 MPV 8.3 Neutrophils % 59.4 Lymphocytes % 29.7 Monocytes % 8.2 Eosinophils % 1.8 Basophils % 0.9 Sodium 138 Potassium 3.9 Chloride 106 Carbon Dioxide 24 Anion Gap 8 BUN 15 Creatinine 1.1 Creat Clearance w eGFR > 60 Random Glucose 135 H D Calcium 8.7 Magnesium 2.1 Total Bilirubin 0.6 D AST 33 D ALT 50 D Alkaline Phosphatase 97 Total Protein 6.8 Albumin 3.4 Active Medications Generic Name Dose Route Start Last Admin Trade Name Freq PRN Reason Stop Dose Admin Aspirin 81 mg 10/12/17 10:00 10/14/17 09:15 Ecotrin - PO 81 mg DAILY [facility] Administration Atorvastatin Calcium 80 mg 10/12/17 22:00 10/13/17 22:20 Lipitor - PO 80 mg HS [facility] Administration Clopidogrel Bisulfate 75 mg 10/12/17 16:45 10/14/17 09:15 Plavix - PO 75 mg DAILY [facility] Administration Enoxaparin Sodium 100 mg 10/13/17 14:45 10/14/17 09:15 Lovenox - SQ 100 mg BID [facility] Administration Lisinopril 20 mg 10/14/17 14:54 Prinivil PO DAILY [facility] Metoprolol Tartrate 25 mg 10/12/17 01:00 10/14/17 09:14 Lopressor - PO 25 mg BID [facility] Administration Spironolactone 25 mg 10/14/17 15:00 Aldactone - PO DAILY [facility] ASSESSMENT/PLAN: Patient is a 52 year old male with a past medical history of hypertension and hyperlipidemia. He presented to the ED with shortness of breath and chest pain for one week. On exam, patient reports that he is no longer having chest pain and is comfortable at rest. No shortnesss of breath reported. Awaiting to be transferred to [facility]. Discussed with HEATHER who is coordinating patient's transfer pending insurance clearance. Imaging: Echo: moderate to severely reduced LV function. Mod to severe global hypk left ventricle Cardiology: NSTEMI with elevated troponins S/p heparin drip, now on Lovenox 100mg BID as per cardiology On ASA 81mg daily, Plavix 75mg daily, Lisinopril 10mg daily, Lipitor 80 mg daily , Metoprolol tartrate 25mg BID Awaiting cardiac cath transfer, possibly [facility] Hypertension, controlled Monitor Hyperlipidemia On Lipitor 80mg daily F.E.N: oral intake sufficient, monitor electrolytes, low salt diet Prophylaxis: Lovenox 100mg bid, Protonix GI protection Disposition: full code, awaiting transfer
[2017-10-14] MEDS: SPIRONOLACTONE 25 MG TABLET (FP) PO SCH (18:04)
[2017-10-14] MEDS: ATORVASTATIN CA 80 MG TABLET (FP) PO SCH (21:03)
[2017-10-15 09:01] LABS: BASO % 0.8 % (0-2.0); EOS % 2.1 % (0-4.5); HEMATOCRIT 46.9 % (35.4-49); HEMOGLOBIN 15.5 GM/dL (11.7-16.9); LYMPH % 29.8 % (8-40); MEAN CELL VOLUME 84.8 fl (80-96); MEAN PLT VOLUME 8.3 fl (7.5-11.1); MONO % 7.8 % (3.8-10.2); NEUT % 59.5 % (42.8-82.8); PLATELET COUNT 356 K/MM3 (134-434); RBC 5.53 M/mm3 (4.00-5.60); RDW 14.1 % (11.9-15.9); WHITE BLOOD COUNT 6.5 K/mm3 (4.0-10.0)
[2017-10-15] MEDS: CLOPIDOGREL BISULFATE 75 MG TABLET (FP) PO SCH (09:01)
[2017-10-15] MEDS: METOPROLOL TARTRATE 25 MG TABLET (FP) PO SCH ×2 (09:01→21:01)
[2017-10-15] MEDS: SPIRONOLACTONE 25 MG TABLET (FP) PO SCH (09:01)
[2017-10-15] MEDS: ENOXAPARIN NA (PORCINE) 100 MG/1 ML DISP.SYRIN SQ SCH ×2 (09:01→21:01)
[2017-10-15] MEDS: ASPIRIN COATED 81 MG TABLET.EC PO SCH (09:01)
[2017-10-15 09:24] LABS: ALBUMIN 3.5 g/dl (3.4-5.0); ANION GAP 12 (8-16); BILIRUBIN,TOTAL 0.5 mg/dL (0.2-1.0); BLOOD UREA NITROGEN 16 mg/dL (7-18); CHLORIDE 105 mmol/L (98-107); CO2 24 mmol/L (21-32); CREATININE 1.1 mg/dL (0.7-1.3); GLUCOSE,RANDOM 135 mg/dL (74-106); MAGNESIUM 2.2 mg/dL (1.8-2.4); POTASSIUM 3.8 mmol/L (3.5-5.1); SGOT/AST 105 U/L (15-37); SGPT/ALT 123 U/L (12-78); SODIUM 141 mmol/L (136-145); TOT PROT 7.5 g/dl (6.4-8.2)
[2017-10-15 09:25] LABS: ALK PHOS 116 U/L (45-117)
--- NOTE | 2017-10-15 17:01 | PN ---
Progress Note, Physician Chief Complaint: The patient appears comfortable at the time of exam. He reports no recurrent chest pain and denies SOB, palpitation or dizziness. Tele shows sinus rhythm. History of Present Illness: 52 year old man with a PMHx of HTN, hyperchol and noncompliant with follow up on no medications, who was admitted 10/11/17 with near syncope and chest pain lasting 30 minutes with dizziness, diaphoresis and left arm tingling. He had no acute ECG changes. But cardiac markers were elevated, consistent with NSTEMI. He is stable on current regimen without recurrent angina or CHF. Awaiting for cardiac cath once insurance is approved. CT 10/11/17 head negative CTA 10/11/17 no PE Echo 10/12/17 Normal LV size with severe global hypokinesis, LVEF = 31%. Normal valves. - Current Medication List Current Medications: Active Medications Aspirin (Ecotrin -) 81 mg PO DAILY [facility] Last Admin: 10/15/17 09:01 Dose: 81 mg Atorvastatin Calcium (Lipitor -) 80 mg PO HS [facility] Last Admin: 10/14/17 21:03 Dose: 80 mg Clopidogrel Bisulfate (Plavix -) 75 mg PO DAILY [facility] Last Admin: 10/15/17 09:01 Dose: 75 mg Enoxaparin Sodium (Lovenox -) 100 mg SQ BID [facility] Last Admin: 10/15/17 09:01 Dose: 100 mg Lisinopril (Prinivil) 20 mg PO DAILY [facility] Last Admin: 10/15/17 09:01 Dose: 20 mg Metoprolol Tartrate (Lopressor -) 25 mg PO BID [facility] Last Admin: 10/15/17 09:01 Dose: 25 mg Spironolactone (Aldactone -) 25 mg PO DAILY [facility] Last Admin: 10/15/17 09:01 Dose: 25 mg - Objective Vital Signs: Vital Signs Temperature 97.8 F 10/15/17 13:50 Pulse Rate 69 10/15/17 13:50 Respiratory Rate 20 10/15/17 13:50 Blood Pressure 155/80 10/15/17 13:50 O2 Sat by Pulse Oximetry (%) 98 10/15/17 09:00 Physical Exam: General: Well developed. Well nourished. No acute distress. AAO X3. Head: Normocephalic. Atraumatic, Eyes: PERRLA, EOMI. Sclerae anicteric. Conjunctivae clear. ENT: Oropharynx, nares clear, mucosa moist without pallor or cyanosis Neck: Supple. No JVD. No bruits. No thyromegaly or lymphadenopathy, Heart: Normal S1, S2: Regular rate and rhythm. No murmur. No gallop or rub. Lungs: Symmetrical air entry. Clear to auscultation. No crackle, wheezing or rhonchi. Abdomen: Soft. Bowel sound positive. Non tender. No masses. Extremities: No edema, clubbing or cyanosis. Peripheral pulses 2+, equal bilaterally. Skin: Normal turgor. Warm and dry. No lesion. Neuro: Intact, no focal findings. Labs: CBC, BMP 10/15/17 08:55 10/15/17 08:55 INR, PTT INR 1.13 (0.82-1.09) 10/12/17 06:45 Assessment/Plan 52 year old man with a PMHx of HTN, hyperchol and noncompliant with follow up on no medications, who was admitted 10/11/17 with near syncope and chest pain lasting 30 minutes with dizziness, diaphoresis and left arm tingling. He had no acute ECG changes. But cardiac markers were elevated, consistent with NSTEMI. He is stable on current regimen without recurrent angina or CHF. Awaiting for cardiac cath once insurance is approved. Echo 10/12/17 Normal LV size with severe global hypokinesis, LVEF = 31%. Normal valves. 1) NSTEMI: Stable without recurrent angina on current medications. Continue Lovenox for one more daily. Continue Aspirin, Plavix, Atorvastatin and Metoprolol. Will transfer the patient to [facility] for cardiac cath once his insurance is approved. 2) Systolic CHF with severe LV systolic dysfunction, likely chronic. He is stable without dyspnea or physical signs of fluid overload. The etiology of LV systolic dysfunction could be ischemic. Continue Metoprolol 25 mg BID. Increae Lisinopril to 40 mg daily. Continue spironolactone 25 mg daily. Monitor potassium and renal function.
--- NOTE | 2017-10-15 17:26 | PN ---
Physical Exam: SUBJECTIVE: Patient seen and examined at the bedside. OBJECTIVE: Awaiting transfer to [facility] for cardiac cath once insurance is approved Started on Lovenox as per cardiology Vital Signs Period Temp Pulse Resp BP Sys/Zhang Pulse Ox Last 24 Hr 97.2 F-98.2 F 65-77 20-21 125-155/78-95 95-98 GENERAL: The patient is awake, alert, and fully oriented, in no acute distress. HEAD: Normal with no signs of trauma. EYES: PERRL, extraocular movements intact, sclera anicteric, conjunctiva clear. No ptosis. ENT: Ears normal, nares patent, oropharynx clear without exudates, moist mucous membranes. NECK: Trachea midline, full range of motion, supple. LUNGS: Breath sounds equal, clear to auscultation bilaterally, no wheezes, no crackles, no accessory muscle use. HEART: Regular rate and rhythm, ABDOMEN: Soft, nontender, nondistended, normoactive bowel sounds, no guarding, no rebound, no hepatosplenomegaly, no masses. EXTREMITIES: no edema. NEUROLOGICAL:Normal speech, gait not observed. PSYCH: Normal mood, normal affect. SKIN: Warm, dry, normal turgor, no rashes or lesions noted Laboratory Results - last 24 hr 10/15/17 10/15/17 08:55 08:55 WBC 6.5 RBC 5.53 Hgb 15.5 Hct 46.9 MCV 84.8 MCH 28.0 MCHC 33.0 RDW 14.1 Plt Count 356 MPV 8.3 Neutrophils % 59.5 Lymphocytes % 29.8 Monocytes % 7.8 Eosinophils % 2.1 Basophils % 0.8 Sodium 141 Potassium 3.8 Chloride 105 Carbon Dioxide 24 Anion Gap 12 BUN 16 Creatinine 1.1 Creat Clearance w eGFR > 60 Random Glucose 135 H Calcium 9.0 Magnesium 2.2 Total Bilirubin 0.5 AST 105 H D ALT 123 H D Alkaline Phosphatase 116 Total Protein 7.5 Albumin 3.5 Active Medications Generic Name Dose Route Start Last Admin Trade Name Freq PRN Reason Stop Dose Admin Aspirin 81 mg 10/12/17 10:00 10/15/17 09:01 Ecotrin - PO 81 mg DAILY [facility] Administration Atorvastatin Calcium 80 mg 10/12/17 22:00 10/14/17 21:03 Lipitor - PO 80 mg HS [facility] Administration Clopidogrel Bisulfate 75 mg 10/12/17 16:45 10/15/17 09:01 Plavix - PO 75 mg DAILY [facility] Administration Enoxaparin Sodium 100 mg 10/13/17 14:45 10/15/17 09:01 Lovenox - SQ 100 mg BID [facility] Administration Lisinopril 20 mg 10/14/17 14:54 10/15/17 09:01 Prinivil PO 20 mg DAILY [facility] Administration Metoprolol Tartrate 25 mg 10/12/17 01:00 10/15/17 09:01 Lopressor - PO 25 mg BID [facility] Administration Spironolactone 25 mg 10/14/17 15:00 10/15/17 09:01 Aldactone - PO 25 mg DAILY [facility] Administration ASSESSMENT/PLAN: Patient is a 52 year old male with a past medical history of hypertension and hyperlipidemia. He presented to the ED with shortness of breath and chest pain for one week. On exam, patient reports that he is no longer having chest pain and is comfortable at rest. No shortnesss of breath reported. Awaiting to be transferred to [facility]. Discussed with HEATHER who is coordinating patient's transfer pending insurance clearance. Imaging: Echo: moderate to severely reduced LV function. Mod to severe global hypk left ventricle Cardiology: NSTEMI with elevated troponins S/p heparin drip, now on Lovenox 100mg BID as per cardiology On ASA 81mg daily, Plavix 75mg daily, Lisinopril 20mg daily, Lipitor 80 mg daily , Metoprolol tartrate 25mg BID, Continue spironolactone 25 mg daily. Lisinopril increased to 40mg as per cardiology recommendations Awaiting cardiac cath transfer, possibly [facility] Hypertension, controlled Monitor Hyperlipidemia On Lipitor 80mg daily F.E.N: oral intake sufficient, monitor electrolytes, low salt diet Prophylaxis: Lovenox 100mg bid, Protonix GI protection Disposition: full code, awaiting transfer Visit type - Emergency Visit Emergency Visit: Yes ED Registration Date: 10/12/17 Care time: The patient presented to the Emergency Department on the above date and was hospitalized for further evaluation of their emergent condition. - New Patient This patient is new to me today: No - Critical Care Critical Care patient: No - Discharge Referral Referred to [facility] No
[2017-10-15] MEDS: ATORVASTATIN CA 80 MG TABLET (FP) PO SCH (21:01)
[2017-10-16 09:14] LABS: ALBUMIN 3.9 g/dl (3.4-5.0); ANION GAP 9 (8-16); BILIRUBIN,TOTAL 0.8 mg/dL (0.2-1.0); BLOOD UREA NITROGEN 20 mg/dL (7-18); CALCIUM 8.9 mg/dL (8.5-10.1); CHLORIDE 104 mmol/L (98-107); CO2 24 mmol/L (21-32); CREATININE 1.2 mg/dL (0.7-1.3); GLUCOSE,RANDOM 109 mg/dL (74-106); POTASSIUM 4.2 mmol/L (3.5-5.1); SGOT/AST 163 U/L (15-37); SGPT/ALT 211 U/L (12-78); SODIUM 137 mmol/L (136-145); TOT PROT 7.8 g/dl (6.4-8.2)
[2017-10-16 09:15] LABS: ALK PHOS 132 U/L (45-117)
[2017-10-16] MEDS: CLOPIDOGREL BISULFATE 75 MG TABLET (FP) PO SCH (10:16)
[2017-10-16] MEDS: METOPROLOL TARTRATE 25 MG TABLET (FP) PO SCH ×2 (10:16→21:27)
[2017-10-16] MEDS: LISINOPRIL 20 MG TABLET (FP) PO SCH (10:16)
[2017-10-16] MEDS: SPIRONOLACTONE 25 MG TABLET (FP) PO SCH (10:16)
[2017-10-16] MEDS: ASPIRIN COATED 81 MG TABLET.EC PO SCH (10:16)
[2017-10-16] MEDS: ENOXAPARIN NA (PORCINE) 100 MG/1 ML DISP.SYRIN SQ SCH ×2 (10:16→21:27)
--- NOTE | 2017-10-16 15:20 | PN ---
Physical Exam: SUBJECTIVE: Patient seen and examined at the bedside. OBJECTIVE: ast/alt elevated, liver u/s ordered Vital Signs Insurance was approved to transfer to [facility] for cardiac cath. Period Temp Pulse Resp BP Sys/Zhang Pulse Ox Last 24 Hr 97.7 F-98.6 F 61-82 14-19 114-158/68-97 98-98 GENERAL: The patient is awake, alert, and fully oriented, in no acute distress. HEAD: Normal with no signs of trauma. EYES: PERRL, extraocular movements intact, sclera anicteric, conjunctiva clear. No ptosis. ENT: Ears normal, nares patent, oropharynx clear without exudates, moist mucous membranes. NECK: Trachea midline, full range of motion, supple. LUNGS: Breath sounds equal, crackles at the bases right > left HEART: Regular rate and rhythm 90s ABDOMEN: soft, mildly distended, + bowel sounds, + pain on lower quadrants EXTREMITIES: 2+ pulses, warm, well-perfused, no edema. NEUROLOGICAL: Normal speech, gait not observed. PSYCH: Normal mood, normal affect. SKIN: Warm, dry, normal turgor, no rashes or lesions noted Laboratory Results - last 24 hr 10/16/17 08:40 Sodium 137 Potassium 4.2 Chloride 104 Carbon Dioxide 24 Anion Gap 9 BUN 20 H D Creatinine 1.2 Creat Clearance w eGFR > 60 Random Glucose 109 H Calcium 8.9 Total Bilirubin 0.8 D AST 163 H D ALT 211 H D Alkaline Phosphatase 132 H Total Protein 7.8 Albumin 3.9 Active Medications Generic Name Dose Route Start Last Admin Trade Name Freq PRN Reason Stop Dose Admin Aspirin 81 mg 10/12/17 10:00 10/16/17 10:16 Ecotrin - PO 81 mg DAILY [facility] Administration Atorvastatin Calcium 80 mg 10/12/17 22:00 10/15/17 21:01 Lipitor - PO 80 mg HS [facility] Administration Clopidogrel Bisulfate 75 mg 10/12/17 16:45 10/16/17 10:16 Plavix - PO 75 mg DAILY [facility] Administration Enoxaparin Sodium 100 mg 10/13/17 14:45 10/16/17 10:16 Lovenox - SQ 100 mg BID [facility] Administration Lisinopril 40 mg 10/16/17 10:00 10/16/17 10:16 Prinivil PO 40 mg DAILY [facility] Administration Metoprolol Tartrate 25 mg 10/12/17 01:00 10/16/17 10:16 Lopressor - PO 25 mg BID [facility] Administration Spironolactone 25 mg 10/14/17 15:00 10/16/17 10:16 Aldactone - PO 25 mg DAILY [facility] Administration ASSESSMENT/PLAN: Patient is a 52 year old male with a past medical history of hypertension and hyperlipidemia. He presented to the ED with shortness of breath and chest pain for one week. On exam, patient reports that he is no longer having chest pain and is comfortable at rest. No shortnesss of breath reported. Awaiting to be transferred to [facility]. Discussed with HEATHER who is coordinating patient's transfer pending insurance clearance. Imaging: Echo: moderate to severely reduced LV function. Mod to severe global hypk left ventricle Cardiology: NSTEMI with elevated troponins S/p heparin drip, now on Lovenox 100mg BID as per cardiology On ASA 81mg daily, Plavix 75mg daily, Lisinopril 20mg daily, Lipitor 80 mg daily , Metoprolol tartrate 25mg BID, Continue spironolactone 25 mg daily. Lisinopril increased to 40mg as per cardiology recommendations Awaiting cardiac cath transfer, possibly [facility] GI: Elevated ALT/AST May be due to Lovenox injections Liver u/s shows hepatocellular disease Patient denies any RUQ pain or discomfort GI consult Hypertension, controlled Monitor Hyperlipidemia On Lipitor 80mg daily F.E.N: oral intake sufficient, monitor electrolytes, low salt diet Prophylaxis: Lovenox 100mg bid, Protonix GI protection Disposition: full code, awaiting transfer
--- NOTE | 2017-10-16 16:32 | PN ---
Progress Note, Physician Chief Complaint: Awaiting cardiac cath History of Present Illness: 52 year old man with a PMHx of HTN, hyperchol and noncompliant with follow up on no medications, who was admitted 10/11/17 with near syncope and chest pain lasting 30 minutes with dizziness, diaphoresis and left arm tingling. He had no acute ECG changes. But cardiac markers were elevated, consistent with NSTEMI. He is stable on current regimen without recurrent angina or CHF. Awaiting for cardiac cath once insurance is approved. CT 10/11/17 head negative CTA 10/11/17 no PE Echo 10/12/17 Normal LV size with severe global hypokinesis, LVEF = 31%. Normal valves. Insurance was approved to transfer to [facility] for cardiac cath. - Current Medication List Current Medications: Active Medications Aspirin (Ecotrin -) 81 mg PO DAILY [facility] Last Admin: 10/16/17 10:16 Dose: 81 mg Atorvastatin Calcium (Lipitor -) 80 mg PO HS [facility] Last Admin: 10/15/17 21:01 Dose: 80 mg Clopidogrel Bisulfate (Plavix -) 75 mg PO DAILY [facility] Last Admin: 10/16/17 10:16 Dose: 75 mg Enoxaparin Sodium (Lovenox -) 100 mg SQ BID [facility] Last Admin: 10/16/17 10:16 Dose: 100 mg Lisinopril (Prinivil) 40 mg PO DAILY [facility] Last Admin: 10/16/17 10:16 Dose: 40 mg Metoprolol Tartrate (Lopressor -) 25 mg PO BID [facility] Last Admin: 10/16/17 10:16 Dose: 25 mg Spironolactone (Aldactone -) 25 mg PO DAILY [facility] Last Admin: 10/16/17 10:16 Dose: 25 mg - Objective Vital Signs: Vital Signs Temperature 98.5 F 10/16/17 14:00 Pulse Rate 71 10/16/17 14:00 Respiratory Rate 14 10/16/17 09:00 Blood Pressure 124/85 10/16/17 14:00 O2 Sat by Pulse Oximetry (%) 98 10/16/17 09:00 Constitutional: Yes: Well Nourished HENT: Yes: WNL Neck: Yes: WNL Cardiovascular: Yes: Regular Rate and Rhythm (NL S1S2, no MRHG) Respiratory: Yes: CTA Bilaterally Gastrointestinal: Yes: Soft Extremities: Yes: WNL Edema: No Peripheral Pulses WNL: Yes Neurological: Yes: Alert, Oriented (Non focal) Labs: CBC, BMP 10/15/17 08:55 10/16/17 08:40 INR, PTT INR 1.13 (0.82-1.09) 10/12/17 06:45 Assessment/Plan NSTEMI: Stable without recurrent angina on current medications. Continue Lovenox Continue Aspirin, Plavix, Atorvastatin and Metoprolol. Will transfer the patient to [facility] for cardiac cath once his insurance is approved. I have communicated with the Telemetry biofuels production technician at [facility] and gave the information for this patient's transfer. They are awaiting bed availability. Systolic CHF S Severe LV systolic dysfunction, likely chronic. He is stable without dyspnea or physical signs of fluid overload. The etiology of LV systolic dysfunction could be ischemic. Continue Metoprolol 25 mg BID. Continue Lisinopril to 40 mg daily. Continue spironolactone 25 mg daily. Monitor potassium and renal function.
--- NOTE | 2017-10-16 19:13 | DS ---
Physical Exam: SUBJECTIVE: Patient seen and examined at the bedside. No shortness of breath, no chest pain. OBJECTIVE: Awaiting bed availability at [facility] Vital Signs Period Temp Pulse Resp BP Sys/Zhang Pulse Ox Last 24 Hr 97.9 F-98.6 F 65-82 14-20 114-158/68-88 98-98 PHYSICAL EXAM GENERAL: The patient is awake, alert, and fully oriented, in no acute distress. HEAD: Normal with no signs of trauma. EYES: PERRL, extraocular movements intact, sclera anicteric, conjunctiva clear. No ptosis. ENT: Ears normal, nares patent, oropharynx clear without exudates, moist mucous membranes. NECK: Trachea midline, full range of motion, supple. LUNGS: Breath sounds equal, crackles at the bases right > left HEART: Regular rate and rhythm 90s ABDOMEN: soft, mildly distended, + bowel sounds, + pain on lower quadrants EXTREMITIES: 2+ pulses, warm, well-perfused, no edema. NEUROLOGICAL: Normal speech, gait not observed. PSYCH: Normal mood, normal affect. SKIN: Warm, dry, normal turgor, no rashes or lesions noted LABS Laboratory Results - last 24 hr 10/16/17 08:40 Sodium 137 Potassium 4.2 Chloride 104 Carbon Dioxide 24 Anion Gap 9 BUN 20 H D Creatinine 1.2 Creat Clearance w eGFR > 60 Random Glucose 109 H Calcium 8.9 Total Bilirubin 0.8 D AST 163 H D ALT 211 H D Alkaline Phosphatase 132 H Total Protein 7.8 Albumin 3.9 HOSPITAL COURSE: Date of Admission:10/12/17 Date of Discharge: 10/16/17 ASSESSMENT/PLAN: Patient is a 52 year old male with a past medical history of hypertension and hyperlipidemia. He presented to the ED with shortness of breath and chest pain for one week. On exam, patient reports that he is no longer having chest pain and is comfortable at rest. No shortnesss of breath reported. Awaiting to be transferred to [facility]. Discussed with HEATHER who is coordinating patient's transfer pending insurance clearance. Imaging: Echo: moderate to severely reduced LV function. Mod to severe global hypk left ventricle Cardiology: NSTEMI with elevated troponins, acute S/p heparin drip, now on Lovenox 100mg BID as per cardiology On ASA 81mg daily, Plavix 75mg daily, Lisinopril 20mg daily, Lipitor 80 mg daily , Metoprolol tartrate 25mg BID, Continue spironolactone 25 mg daily. Lisinopril increased to 40mg as per cardiology recommendations Awaiting cardiac cath transfer at [facility], insurance accepted, awaiting for a bed GI: Elevated ALT/AST, acute Liver u/s shows hepatocellular disease Patient denies any RUQ pain or discomfort GI consult Hypertension, controlled Monitor Hyperlipidemia On Lipitor 80mg daily F.E.N: oral intake sufficient, monitor electrolytes, low salt diet Prophylaxis: Lovenox 100mg bid, Protonix GI protection Disposition: full code, awaiting transfer Discharge Summary Reason For Visit: NSTEMI Current Active Problems NSTEMI (non-ST elevated myocardial infarction) (Acute) Condition: Guarded - Instructions Diet, Activity, Other Instructions: transfer to [facility] [employer] [facility], pending bed availability Disposition: TRANSFER ACUTE CARE/OTHER HOSP - Home Medications Comprehensive Discharge Medication List: Ambulatory Orders Aspirin Coated [Ecotrin -] 81 mg PO DAILY tablet.ec 10/16/17 Atorvastatin Ca [Lipitor] 80 mg PO HS tablet 10/16/17 Clopidogrel Bisulfate [Plavix -] 75 mg PO DAILY tablet 10/16/17 Enoxaparin [Lovenox -] 100 mg SQ BID disp.syrin 10/16/17 Lisinopril [Prinivil] 40 mg PO DAILY tablet 10/16/17 Metoprolol Tartrate [Lopressor -] 25 mg PO BID tablet 10/16/17 Spironolactone [Aldactone -] 25 mg PO DAILY tablet 10/16/17 - Discharge Referral Referred to [facility] No
[2017-10-16] MEDS: ATORVASTATIN CA 80 MG TABLET (FP) PO SCH (21:27)
[2017-10-17] MEDS: METOPROLOL TARTRATE 25 MG TABLET (FP) PO SCH (09:47)
[2017-10-17] MEDS: ASPIRIN COATED 81 MG TABLET.EC PO SCH (09:47)
[2017-10-17] MEDS: ENOXAPARIN NA (PORCINE) 100 MG/1 ML DISP.SYRIN SQ SCH (09:47)
[2017-10-17] MEDS: SPIRONOLACTONE 25 MG TABLET (FP) PO SCH (09:47)
[2017-10-17] MEDS: CLOPIDOGREL BISULFATE 75 MG TABLET (FP) PO SCH (09:47)
[2017-10-17] MEDS: LISINOPRIL 20 MG TABLET (FP) PO SCH (09:48)
[2017-10-17 10:38] VITALS: BP 129/79; PULSE 76; TEMP 97.1
--- NOTE | 2017-10-17 10:50 | PN ---
Progress Note, Physician Chief Complaint: Awaiting cardiac cath History of Present Illness: 52 year old man with a PMHx of HTN, hyperchol and noncompliant with follow up on no medications, who was admitted 10/11/17 with near syncope and chest pain lasting 30 minutes with dizziness, diaphoresis and left arm tingling. He had no acute ECG changes. But cardiac markers were elevated, consistent with NSTEMI. He is stable on current regimen without recurrent angina or CHF. Awaiting for cardiac cath once insurance is approved. CT 10/11/17 head negative CTA 10/11/17 no PE Echo 10/12/17 Normal LV size with severe global hypokinesis, LVEF = 31%. Normal valves. Insurance was approved to transfer to [facility] for cardiac cath. - Current Medication List Current Medications: Active Medications Aspirin (Ecotrin -) 81 mg PO DAILY [facility] Last Admin: 10/17/17 09:47 Dose: 81 mg Atorvastatin Calcium (Lipitor -) 80 mg PO HS [facility] Last Admin: 10/16/17 21:27 Dose: 80 mg Clopidogrel Bisulfate (Plavix -) 75 mg PO DAILY [facility] Last Admin: 10/17/17 09:47 Dose: 75 mg Enoxaparin Sodium (Lovenox -) 100 mg SQ BID [facility] Last Admin: 10/17/17 09:47 Dose: 100 mg Lisinopril (Prinivil) 40 mg PO DAILY [facility] Last Admin: 10/17/17 09:48 Dose: 40 mg Metoprolol Tartrate (Lopressor -) 25 mg PO BID [facility] Last Admin: 10/17/17 09:47 Dose: 25 mg Spironolactone (Aldactone -) 25 mg PO DAILY [facility] Last Admin: 10/17/17 09:47 Dose: 25 mg - Objective Vital Signs: Vital Signs Temperature 97.1 F L 10/17/17 10:36 Pulse Rate 76 10/17/17 10:36 Respiratory Rate 18 10/17/17 10:36 Blood Pressure 129/79 10/17/17 10:36 O2 Sat by Pulse Oximetry (%) 96 10/17/17 09:00 Constitutional: Yes: Well Nourished Eyes: Yes: WNL HENT: Yes: WNL Cardiovascular: Yes: Regular Rate and Rhythm Respiratory: Yes: CTA Bilaterally Gastrointestinal: Yes: Soft Extremities: Yes: WNL Edema: No Neurological: Yes: Alert, Oriented (non focal) Labs: CBC, BMP 10/15/17 08:55 10/16/17 08:40 INR, PTT INR 1.13 (0.82-1.09) 10/12/17 06:45 Assessment/Plan NSTEMI: Stable without recurrent angina on current medications. Continue Lovenox Continue Aspirin, Plavix, Atorvastatin and Metoprolol. Will transfer the patient to [facility] for cardiac cath once his insurance is approved. I have communicated with the Telemetry hand pleater at [facility] and gave the information for this patient's transfer. They are awaiting bed availability. Systolic CHF S Severe LV systolic dysfunction, likely chronic. He is stable without dyspnea or physical signs of fluid overload. The etiology of LV systolic dysfunction could be ischemic. Continue Metoprolol 25 mg BID. Continue Lisinopril to 40 mg daily. Continue spironolactone 25 mg daily. Monitor potassium and renal function.
--- NOTE | 2017-10-17 13:18 | EKG ---
Test Reason : Blood Pressure : / mmHG Vent. Rate : 069 BPM Atrial Rate : 069 BPM P-R Int : 166 ms QRS Dur : 094 ms QT Int : 446 ms P-R-T Axes : 081 -27 141 degrees QTc Int : 477 ms NORMAL SINUS RHYTHM NONSPECIFIC T WAVE ABNORMALITY PROLONGED QT ABNORMAL ECG WHEN COMPARED WITH ECG OF 12-OCT-2017 00:56, NONSPECIFIC T WAVE ABNORMALITY NOW EVIDENT IN INFERIOR LEADS Confirmed by MD Chente, Bhaskar ([id number]) on 10/17/2017 1:18:37 PM Referred By: Confirmed By:Bhaskar Eldridge MD
[2017-10-19 00:06] LABS: HBSAG SCREEN Negative (Negative); HEP A AB, IGM Negative (Negative); HEP B CORE AB, TOT Negative (Negative)
== END 2017-10-17 19:04 | disposition short-term general hospital (02) | DRG 190 ==
LOC: JER 14:46 → JERBED 10-12 00:06 → J4W 10-13 00:46
PROVIDERS: ADMIT Internal Medicine; ATTEND Nurse Practitioner Family
DX: I21.4 Non-ST elevation (NSTEMI) myocardial infarction (principal); I11.0 Hypertensive heart disease with heart failure; I50.22 Chronic systolic (congestive) heart failure; E78.5 Hyperlipidemia, unspecified; Z87.891 Personal history of nicotine dependence; E66.9 Obesity, unspecified; Z68.33 Body mass index [BMI] 33.0-33.9, adult; Z91.14 Patient's other noncompliance with medication regimen; K76.9 Liver disease, unspecified; R11.2 Nausea with vomiting, unspecified; R00.0 Tachycardia, unspecified; R10.9 Unspecified abdominal pain; R01.1 Cardiac murmur, unspecified; D72.829 Elevated white blood cell count, unspecified
CPT/HCPCS: 36415; 70450-TC; 71045-TC-FY; 71275-TC; 76705-TC; 80048; 80053; 80061; 81003; 81015; 82550; 82553; 83036; 83721; 83735; 83880; 84100; 84443; 84484; 85025; 85610; 85730; 86704; 86706; 86708; 87340; 93005; 93010; 93306-TC; 99284-25; J1644